=== PATIENT | female | born 1965 | race Caucasian/White ===

== ENCOUNTER 2017-11-06 06:19 | Emergency (ER) | payer BC ==
[~2017-11-06] VITALS: Ht 157.5 cm; Wt 88.3 kg
[2017-11-06 09:14] VITALS: BP 101/73
== END 2017-11-06 09:15 | disposition home or self-care (01) ==
LOC: EME 06:19
DX: S93.402A Sprain of unspecified ligament of left ankle, initial encounter (principal); W00.0XXA Fall on same level due to ice and snow, initial encounter; X50.1XXA Overexertion from prolonged static or awkward postures, initial encounter; M77.32 Calcaneal spur, left foot
CPT/HCPCS: 73610; 73630; 99281; 99284